=== PATIENT | male | born 1980 | race Two or more races ===

== ENCOUNTER 2020-10-08 22:15 | Inpatient (IN) | payer OTHER ==
[~2020-10-08] VITALS: Ht 170.2 cm; Wt 70.3 kg
== END 2020-10-11 19:30 | disposition home or self-care (01) | DRG 392 ==
LOC: ER 22:15 → MEDJ 10-09 08:43 → MEDI 10-10 16:09
PROVIDERS: ADMIT Internal Medicine; ATTEND Internal Medicine
PROC: BW2110Z Computerized Tomography (CT Scan) of Abdomen and Pelvis using Low Osmolar Contrast, Unenhanced and Enhanced (ICD-10-PCS; principal; 2020-10-09)
DX: K52.9 Noninfective gastroenteritis and colitis, unspecified (principal); E86.0 Dehydration; Z20.822 Contact with and (suspected) exposure to COVID-19